=== PATIENT | male | born 1985 | race Caucasian/White ===

== ENCOUNTER 2019-04-07 00:07 | Emergency (ER) | payer SELFPAY ==
[~2019-04-07] VITALS: Ht 185.4 cm; Wt 86.4 kg
[2019-04-07 00:15] VITALS: Ht 185.4 cm; Wt 86.4 kg
[2019-04-07] MEDS ORDERED: CLEOCIN HCL300 MG PO (01:06)
[2019-04-07] MEDS ORDERED: TORADOL10 MG PO (01:06)
[2019-04-07 01:35] VITALS: BP 116/80
== END 2019-04-07 01:35 | disposition home or self-care (01) ==
LOC: D.ER 00:07
DX: K02.9 Dental caries, unspecified (principal); K08.89 Other specified disorders of teeth and supporting structures